=== PATIENT | female | born 1955 | race Caucasian/White ===

== ENCOUNTER 2024-03-22 15:11 | Emergency (ER) | payer OTHER, SELFPAY ==
[2024-03-22 15:32] VITALS: BP 147/71; PULSE 74; RESP 18; TEMP 36.6; O2SAT 97; BMI 26.4
--- NOTE | 2024-03-22 16:22 | ED_ITS ---
HPI - General Adult General Chief complaint: Extremity Pain/Injury, Upper Stated complaint: Left hand abscess, sore and painful Time Seen by Provider: 03/22/24 16:00 Source: patient Mode of arrival: ambulatory Limitations: no limitations History of Present Illness HPI narrative: 68-year-old female coming in today complaining of a skin lesion on her hand has become painful. She noticed that there about a month ago. She has no other concerns today. The lesion is not draining, does appear to be growing over the last month. Remainder of the hand is unremarkable. Related Data Home Medications ?Medication ?Instructions ?Recorded ?Confirmed BP med 03/22/24 acid reflux med 03/22/24 levothyroxine 100 mcg tablet 100 mcg PO DAILY 03/22/24 03/22/24 (Levo-T) Allergies Allergy/AdvReac Type Severity Reaction Status Date / Time No Known Drug Allergies Allergy Verified 03/22/24 15:32 Review of Systems Status of ROS: Reports: 6 or more systems reviewed and unremarkable except as noted in History and below Exam Narrative: Exam Narrative: Well-nourished well-developed patient in no acute distress. Alert and oriented. Answers questions appropriately. Mood and affect are appropriate. Thoughts are goal oriented and rational. No tangential or magical thinking noted. Patient speaks in full sentences without needing to catch her breath. HEENT: Normocephalic atraumatic. Pupils are equally round reactive to light. Extraocular muscles are intact. Conjunctivae are moist without any icterus noted. Moist mucous membranes. Extremities: On the dorsal surface of the left hand patient has a dome-shaped lesion with a central area of depression and scabbing. There is no erythema or warmth to the area the skin is not indurated. There is no infection that is apparent. The lesion appears very reminiscent of a keratoacanthoma. Const: Vital Signs, click to edit/add: Vital Signs - 24 hr 03/22/24 15:32 Temperature 98 F Pulse Rate [Pulse Oximeter] 74 Respiratory Rate 18 Blood Pressure [Ri ght Upper Arm] 147/71 H Pulse Oximetry 97 Oxygen Delivery Me thod Room Air Course Vital Signs Vital signs: Initial Vital Signs Temperature 98 F 03/22/24 15:32 Temperature Source Temporal Artery Scan 03/22/24 15:32 Pulse Rate 74 03/22/24 15:32 Respiratory Rate 18 03/22/24 15:32 Blood Pressure 147/71 H 03/22/24 15:32 Blood Pressure Mean 96 03/22/24 15:32 Blood Pressure Position Sitting 03/22/24 15:32 Pulse Oximetry 97 03/22/24 15:32 Oxygen Delivery Method Room Air 03/22/24 15:32 Vital Signs Temperature 98 F 03/22/24 15:32 Pulse Rate 74 03/22/24 15:32 Respiratory Rate 18 03/22/24 15:32 Blood Pressure 147/71 H 03/22/24 15:32 Pulse Oximetry 97 03/22/24 15:32 Oxygen Delivery Method Room Air 03/22/24 15:32 Temperature 98 F 03/22/24 15:32 Pulse Rate 74 03/22/24 15:32 Respiratory Rate 18 03/22/24 15:32 Blood Pressure 147/71 H 03/22/24 15:32 Pulse Oximetry 97 03/22/24 15:32 Oxygen Delivery Method Room Air 03/22/24 15:32 Medical Decision Making MDM Narrative Medical decision making narrative: 68-year-old female with a keratoacanthoma. Patient instructed to follow up with primary care or felt carbonizer for removal. Differential diagnosis does include squamous cell carcinoma, basal cell carcinoma. Discharge Plan Discharge Clinical Impression: Keratoacanthoma of hand Patient Disposition: Home, Self-Care Condition: Stable Additional Instructions: Follow up with your primary care provider - this lesion will need to be removed. Prescriptions: No Action levothyroxine [Levo-T] 100 mcg tablet 100 mcg PO DAILY acid reflux med BP med Stand Alone Forms: [employer] Info Instructions
--- OUTSIDE RECORDS SUMMARY | 2024-03-22 16:46 | XMS_ITS | Clinical Summary ---
Author Organization [facility] Address [address] [place] [address] Care Team Providers Care Regulatory Associate Name Role Phone Unavailable Primary Care Provider Unavailabl e Source Comments PLEASE NOTE, if this patient is a minor, it may be UNLAWFUL to discuss sensitive information that is contained in these records (such as FAMILY PLANNING, MENTAL HEALTH or SUBSTANCE ABUSE) with the minor patient's parent or other person without the patient's specific authorization.[facility] Allergies Active Allergy Reactions Criticality Noted Date Comments Lisinopril Cough Low 12/23/2017 Medications Medication Sig Dispensed Refills Start Date End Date Status omeprazole (PRILOSEC) [address] capsule Take 1 Capsule by mouth 2 (two) times daily before a meal 03/25/2023 Active simvastatin (ZOCOR) 20 mg tablet Take 1 Tablet by mouth at bedtime 03/25/2023 Active oxyCODONE (ROXICODONE) 5 mg tablet Take 2 Tablets by mouth every 4 hours as needed 05/28/2023 Active losartan (COZAAR) 100 mg tablet Take 0.5 Tablets by mouth daily. TAKE 0.5 TABLETS (50 MG) BY MOUTH ONCE DAILY. 06/11/2023 Active levothyroxine (SYNTHROID, LEVOXYL) 112 mcg tablet Take 1 Tablet by mouth daily. 08/21/2023 Active Active Problems Problem Noted Date Diagnosed Date Facial droop 06/09/2023 TIA (transient ischemic attack) 06/09/2023 Acute left-sided muscle weakness 01/05/2021 Overview: Transient left-sided weakness and slurring of speech, improving after thrombolytic HTN (hypertension) 01/05/2021 Alcohol intoxication 01/05/2021 Hallux rigidus of left foot 05/13/2017 Overview: Added automatically from request for surgery [id number] Insomnia 12/07/2015 Bradycardia 12/07/2015 Dyspnea on exertion 12/07/2015 Abnormal heart sounds 12/07/2015 Metatarsalgia, right foot 12/07/2015 Hammertoe 12/07/2015 Hallux rigidus of both feet 12/07/2015 Bunion 12/07/2015 Capsulitis of right foot 12/07/2015 Gout Hypertension Current smoker Hypothyroid Hyperlipidemia Immunizations Name Administration Dates Next Due Flu, Preservative Free 06/27/2021,2018,07/08/2018,2017 INFLUENZA, SEASONAL, INJECTABLE 09/13/2014,06/30 INFLUENZA, UNSPECIFIED FORMULATION 07/10/2020 Novel [id number], preservative-free, injectable 07/31/2009 PNEUMOCOCCAL CONJUGATE PCV 13 07/10/2020 PNEUMOCOCCAL CONJUGATE PCV 20 03/25/2023 TDAP 03/25/2023,07/14/2012 Td(adult),2 Lf tetanus toxoid,preservative free 01/17/2006 Social History Tobacco Use Types Packs/Day Years Used Date Smoking Tobacco: Never Assessed Social Connections Answer Date Recorded Social Connections and Isolation 0 09/11/2023 Financial Resource Strain Answer Date R ecorded Financial Resource Strain 0 2022 Stress Answer Date Recorded Stress 0 09/11/2023 Physical Activity Answer Date Recorded Physical Activity 0 09/11/2023 Food Insecurity Answer Date Recorded Food 0 09/11/2023 Transportation Needs Answer Date Record ed Transportation 0 09/11/2023 Housing Stability Answer Date Recorded Housing 0 09/11/2023 Safety and Environment Answer Date Jaspreet rded Safety 0 09/11/2023 Utilities Answer Date Recorded Utilities 0 09/11/2023 Employment Answer Date Recorded Employment 0 09/11/2023 Sex and Gender Information Value Date Recorded Sex Assigned at Not on file Gender Identity Not on file Sexual Orientation Not on file Last Filed Vital Signs Vital Sign Reading Time Taken Comments Blood Pressure 132/80 12/25/2018 11:32 AM CDT Pulse 79 12/25/2018 10:50 AM CDT Temperature 36.7 ??C (98 ??F) 12/25/2018 10:50 AM CDT Respiratory Rate 18 06/06/2017 10:02 AM CDT Oxygen Saturation 95% 12/25/2018 10:50 AM CDT Inhaled Oxygen Concentration - - Weight 70.2 kg (154 lb 13 oz) 06/09/2018 3:52 PM CDT Height 152.4 cm (5') 07/08/2018 2:11 PM CDT Body Mass Index 30.23 06/09/2018 3:52 PM CDT Plan of Treatment Health Maintenance Due Date Last Done Comments Hepatitis C Screening 1955 Tobacco Cessation Counseling (#1) 1957 Tobacco Screening 1955 Breast Cancer Screening (Mammogram) 1997 CT Colonography 2002 FIT/gFOBT 2002 Fecal DNA 2002 Flexible Sigmoidoscopy 2002 Imm-Zoster, Recombinant (1 of 2) 2007 Colonoscopy 10/13/2017 10/13/2007 Colorectal Cancer Screening 10/13/2017 Lipid Screening 01/06/2022 01/06/2021, 10/28/2017 Bone Density Screening 2022 Falls Prevention 2022 [id number] ( season) 05/31/202301/28/ 021, 01/07/2021 Alcohol and Drug Screen 09/30/2023 Depression Annual Screen 09/30/2023 12/25/2018 Imm-Influenza (Season Ended) 2024, 07/10/2020, 07/21/2019, Additional history exists TSH Monitoring 06/10/2024 06/10/2023, 05/31, 06/09/2023, Additional history exists Diabetes Screening 06/10/2026 06/10/2023, 0 06/09/2023, 01/06/2021, Additional history exists Imm-DTaP/Tdap/Td (3 - Td or Tdap) 03/25/2033 03/25/2023, 07/14/2012, 01/17/2006 Imm-Pneumococcal 65+ Completed 03/25/2023, 07/10/20 Procedures Procedure Name Priority Date/Time Associated Diagnosis Comments CE UNMAPPED RESULTS Routine 06/10/2023 4 :00 AM PDT BASIC METABOLIC PANEL Routine 06/10/2023 6:00 AM CDT LIPID PANEL WITH REFLEX Routine 01/06/2021 4:58 AM CDT COLONOSCOPY Routine 10/13/2007 12:00 AM FURNITURE PAINTER from Last 3 Months or Most Recently Relevant to Health Maintenance Results * (ABNORMAL) BASIC METABOLIC PANEL (06/10/2023 6:00 AM CDT) UREA NITROGEN (BUN) 22(H) 7 - 17 mg/dL 06/10/2023 6:40 AM CDT DATA CONVERSION SODIUM, SERUM 135(L) 137 - 145 mmol/L 06/10/2023 6:40 AM CDT DATA CONVERSION EGFR 71(L) mL/min/1.7 3m2 06/10/2023 6:40 AM CDT DATA CONVERSION Comment:As of 2021, eG FR is calculated by the CKD-EPI creatinine equation without race adjustment. eGFR can be influenced by muscle mass, exercise, and diet. The reported eGFR is an estimation only and is only applicable if the renal function is stable. Calcium 9.3 8.4 - 10.2 mg/dL 06/10/2023 6:40 AM CDT DATA CONVERSION ANION GAP 5 3 - 11 meq/L 06/10/2023 6:40 AM CDT DATA CONVERSION CO2 (NUNM) 23 22 - 30 mmol/L 06/10/2023 6:40 AM CDT DATA CONVERSION BUN/CREAT RATIO 24 6:40 AM CDT DATA CONVERSION POTASSIUM, SERUM 3.8 3.5 - 5.1 mmol/L 06/10/2023 6:40 AM CDT DATA CONVERSION GLUCOSE 90 75 - 100 mg/dL 06/10/2023 6:40 AM CDT DATA CONVERSION CHLORIDE 107 98 - 107 mmol/L 06/10/2023 6:40 AM CDT DATA CONVERSION CREATININE, SERUM ([facility]) 0.90 0.52 - 1.04 mg/dL 06/10/2023 6:40 AM CDT DATA CONVERSION 06/10/2023 6:00 AM CDT Sa95 Provider Not In System [facility] DATA CONVERSION * (ABNORMAL) LIPID PANEL WITH REFLEX (01/06/2021 4:58 AM CDT) CHOL/HDL 3.36 <=4.50 01/06/2021 5:20 AM CDT DATA CONVERSION LDL CHOLESTEROL CALC 74 <=130 mg/dL 01/06/2021 5:20 AM CDT DATA CONVERSION TRIGLYCRDES 151(H) <150 mg/dL 01/06/2021 5:20 AM CDT DATA CONVERSION CHOLESTEROL 148 <200 mg/dL 01/06/2021 5:20 AM CDT DATA CONVERSION FASTING STATUS RANDOM 01/06/2021 5:20 AM CDT DATA CONVERSION NON HDL CHOLESTEROL 104 <145 mg/dl 01/06/2021 5:20 AM CDT DATA CONVERSION HDL CHOLESTEROL 44 40 - 60 mg/dL 01/06/2021 5:20 AM CDT DATA CONVERSION 01/06/2021 4:58 AM CDT Sa[facility] Provider Not In System LAB - BLOOD DRAW DATA CONVERSION * COLONOSCOPY (10/13/2007 12:00 AM FURNITURE PAINTER) 10/13/2007 Sa95 Provider Not In System PROCEDURES DATA CONVERSION [address] [place] [address], [place] from Last 3 Months or Most Recently Relevant to Health Maintenance
--- OUTSIDE RECORDS SUMMARY | 2024-03-22 16:46 | XMS_ITS | Clinical Summary ---
Author Organization [facility] Address [place], [place] [address] Care Team Providers Care Signals Intelligence Superintendent Name Role Phone Edis Henrandez MD Primary Care Provider [phone] Allergies Active Allergy Reactions Criticality Noted Date Comments Lisinopril Cough Low 12/23/2017 Medications Medication Sig Dispensed Refills Start Date End Date Status omeprazole (PRILOSEC) 20 mg Delayed-Release capsuleIndications: Gastroesophageal reflux disease, unspecified whether esophagitis present Take 1 Capsule (20 mg) by mouth two times daily before meals. 180 Capsule 3 03/25/2023 Active simvastatin (ZOCOR) 20 mg tabletIndications:H yperlipidemia, unspecified hyperlipidemia type Take 1 Tablet (20 mg) by mouth at bedtime. 90 Tablet 3 03/25/2023 Active oxyCODONE (ROXICODONE) 5 mg immediate release tabletIndications:C MC arthritis Take 1-2 Tablets (5-10 mg) by mouth every 4 hours if needed for Pain. 30 Tablet 05/28/2023 Active acetaminophen SR (TYLENOL ARTHRITIS) 650 mg Extended-Release tabletIndications:p ain Take 650 mg by mouth 2 times daily if needed. Max acetaminophen dose: 4000mg in 24 hrs. Active losartan (COZAAR) 100 mg tabletIndications:E ssential hypertension Take 0.5 Tablets (50 mg) by mouth once daily. 90 Tablet 3 06/11/2023 Active levothyroxine (SYNTHROID) 112 mcg tabletIndications:A cquired hypothyroidism Take 1 Tablet (112 mcg) by mouth once daily. 90 Tablet 3 12/13/2023 Active Active Problems Problem Noted Date Diagnosed Date Facial droop 06/09/2023 TIA (transient ischemic attack) 06/09/2023 Acute left-sided muscle weakness 01/05/2021 Overview: Transient left-sided weakness and slurring of speech, improving after thrombolytic HTN (hypertension) 01/05/2021 Alcohol intoxication 01/05/2021 Hallux rigidus of left foot 05/13/2017 Overview: Added automatically from request for surgery [id number] Insomnia 12/07/2015 Bradycardia 12/07/2015 Dyspnea on exertion 12/07/2015 Abnormal heart sounds 12/07/2015 Metatarsalgia, right foot 12/07/2015 Hammertoe 12/07/2015 Hallux rigidus of both feet 12/07/2015 Bunion 12/07/2015 Capsulitis of right foot 12/07/2015 Gout Hypertension Current smoker Hypothyroid Hyperlipidemia Immunizations Name Administration Dates Next Due COVID-19 vaccine (Localmint 30mcg/0.3mL) PF, MDV 01/28/2021,01/07/2021 Influenza A (H1N1), Inactiva joseluis (Age >=3 Years) 07/31/2009 Influenza Virus, Unspecified 07/10/2020 Influenza, IIV3 (Age >=3 years) 09/13/2014,06/30 Influenza, IIV4 06/27/2021,,07/08/2018,2017 Pneumococcal Conj 20-valent (Prevnar 20) 03/25/2023 Pneumococcal conj 13-Valent (Prevnar 13) 07/10/2020 Td (Age >=7 Years) 01/17/2006 Tdap 03/25/2023,07/14/2012 Family History Medical History Relation Name Comments Good Health Brother one Good Health Daughter 1 Alie Good Health Daughter 2 Mariella Endometriosis Daughter 3 Tania Other Father alive - macular degener. Other Mother choking episode -dec Diabetes Paternal Grandmother Stroke Paternal Grandmother Good Health Sister 1 four Asthma Sister 3 Cancer-breast No Family History Cancer-colon No Family History Cancer-ovarian No Family History Cancer-prostate No Family History Coronary artery disease No Family History Relation Name Status Comments Brother Alive Daughter 1 Alie Alive Daughter 2 Mariella Alive Daughter 3 Tania Alive Father Alive Maternal Grandfather Maternal Grandmother Mother (Age 85) Paternal Grandfather Paternal Grandmother Sister 1 Alive Sister 2 Alive Sister 3 Alive Sister 4 Alive Social History Tobacco Use Types Packs/Day Years Used Date Smoking Tobacco: Every Day Cigarettes 1 30 Started: 07/24/1989; Last attempted to quit: 07/24/2019 Smokeless Tobacco: Never Tobacco Cessation:Ready to Q uit: No; Counseling Given: No Alcohol Use Standard Drinks/Week Comments Yes 2 (1 standard drink = 0.6 oz pur e alcohol) 4 times a week PHQ-2 Answer Date Recorded PHQ-2 TOTAL SCORE 0 05/21/2023 Social Connections Answer Date Recorded Frequency of Communication with Friends and Fami ly Not on file 09/30/2021 Financial Resource Strain Answer Date R ecorded Difficulty of Paying Living Expenses Not on file 09/30/2021 Difficulty of Paying Living Expenses Not on file 09/30/2021 Sex and Gender Information Value Date Recorded Sex Assigned at Not on file Gender Identity Not on file Sexual Orientation Not on file Obstetrics History Para Term AB IAB SAB Ectopic Multiple Livin g Live Births 5 3 Date Outcome GA Total Labor Labor/2nd/3rd Weight Sex Type Anes PTL Diane A1 A5 Name Clin Para Para Para Last Filed Vital Signs Vital Sign Reading Time Taken Comments Blood Pressure 157/86 08/14/2023 10:44 AM FREELANCE GRAPHIC DESIGNER Pulse 68 08/14/2023 10:44 AM FREELANCE GRAPHIC DESIGNER Temperature 36.2 ??C (97.2 ??F) 06/10/2023 8 :13 AM CDT Respiratory Rate 18 06/10/2023 8:13 AM CDT Oxygen Saturation 98% 08/14/2023 10: 44 AM FREELANCE GRAPHIC DESIGNER Inhaled Oxygen Concentration - - Weight 70.3 kg (154 lb 14.4 oz) 06/10/2023 8:13 AM CDT need to rezero bed Height 152.4 cm (5') 06/10/2023 12:00 AM CDT Body Mass Index 30.25 06/10/2023 12:00 AM CDT Plan of Treatment Health Maintenance Due Date Last Done Comments Hepatitis C screening for ag e 18-[address] (for lung CA) ag e 50-80 2007 Zoster (shingles) series for age 50+ (1 of 2) 2007 Mammogram for age 45-75 05/17/2015 05/17/2014, 05/17 Colonoscopy through age 75 12/06/201812/06 (Completed outside of [facility]), 10/13/2007 DEXA/DXA scan for age 65+ 2022 Medicare Wellness for age 65+ 2022 12/25/2018 COVID-19 vaccine series ( season) 2023 01/28/2021, 01/07/2021 BMI (ht and wt on same day) for age 18+ 05/21/2024 05/21/2023, 04/24/2023, 03/25/2023, Additional history exists Depression screening for age 12+ 05/21/2024 05/21/2023, 05/21/2023, 03/25/2023, Additional history exists Influenza for age 65+ 05/31/2024 06/27/2021 , 07/10/2020, 07/21/2019, Additional history exists Lipids for age 45-75 02/08/2028 02/07/2023, 12/19/2021, 01/06/2021, Additional history exists Tetanus booster 03/25/2033 03/25/2023, 06/30, 01/17/2006 Pneumococcal series for age 65+ Completed , 07/10/2020 Tdap Completed 03/25/2023, 07/14/2012 Procedures Procedure Name Priority Date/Time Associated Diagnosis Comments LIPID PANEL Today 02/07/2023 10:01 AM CDT Hyperlipidemia, unspecified hyperlipidemia type MAMMOGRAPHY Routine 05/17/2014 Special screening examination for neoplasm of breast COLONOSCOPY Routine 10/13/2007 Special screening for malignant neoplasm of colon from Last 3 Months or Most Recently Relevant to Health Maintenance Results * (ABNORMAL) LIPID PANEL (02/07/2023 10:01 AM CDT) CHOLESTEROL,TOTAL 237(H) <200 mg/dL 02/07/2023 10:49 AM CDT [facility] TRIGLYCERIDES 192(H) 10 - 150 mg/dL 02/07/2023 10:49 AM CDT [facility] HDL CHOLESTEROL 47 >40 mg/dL 10:49 AM CDT [facility] CHOL/HDL RATIO 5.04(H) 0.00 - 5.00 02/07/2023 10:49 AM CDT [facility] VLDL CHOLESTEROL CUY 38(H) 0 - 30 mg/dL 02/07/2023 10:49 AM CDT [facility] PATIENT STATUS FASTING 02/07/2023 10:49 AM CDT [facility] LDL CHOLESTEROL CUY 128(H) <100 mg/dL 02/07/2023 10:49 AM T [facility] Blood BLOOD SPECIMEN / Unknown Venipuncture / Unknown 02/07/2023 10:01 AM CDT 02/07/2023 10:02 AM CDT Edis Hernandez MD CHEMISTRY [facility] [address] [place] [address], * MAMMOGRAPHY [] (05/17/2014) MAMMOGRAM completed Anatomical Region Laterality Modality Other Other Doctor Unknown [facility] RESULTS * COLONOSCOPY [] (10/13/2007) COLONOSCOPY completed Other Doctor Unknown [facility]INT RESULTS from Last 3 Months or Most Recently Relevant to Health Maintenance Advance Directives * Full Code (Latest Code Status on File) Date Activated Date Inactivated Comments 06/10/2023 12:01 AM 06/10/2023 12:37 PM Question Answer Comments Code Status Discussion: Reviewed Preferences * Full Code Date Activated Date Inactivated Comments 05/28/2023 2:17 PM 05/29/2023 2:34 AM Question Answer Comments Code Status Discussion: Reviewed Preferences * Full Code Date Activated Date Inactivated Comments 01/05/2021 3:55 AM 01/06/2021 3:44 PM Per spouse Question Answer Comments Code Status Discussion: Discussed * Full Code Date Activated Date Inactivated Comments 05/17/2017 7:38 AM 05/17/2017 11:30 AM * Full Code Date Activated Date Inactivated Comments 05/17/2017 6:20 AM 05/17/2017 7:38 AM Care Teams Signals Intelligence Superintendent Relationship Specialty Start Date End Date Edis Hernandez MD [address] [place] [id number] PCP - General Family Practice 09/02/19
--- OUTSIDE RECORDS SUMMARY | 2024-03-22 16:46 | XMS_ITS | Encounter Summary ---
Author Organization [facility] Address [address] [place] [address] Care Team Providers Care Caustics Loader Name Role Phone Unavailable Primary Care Provider Unavailabl e Encounter Details Date Type Department Care Team (Late st Contact Info) Description 05/20/2017 Scan Pathology [facility] MICHAEL [address] [facility] [place] [id number] System, [id number] Provider Not In Social History Tobacco Use Types Packs/Day Years Used Date Smoking Tobacco: Never Assessed Sex and Gender Information Value Date Recorded Sex Assigned at Not on file Gender Identity Not on file Sexual Orientation Not on file documented as of this encounter Plan of Treatment Not on file documented as of this encounter Procedures Procedure Name Priority Date/Time Associated Diagnosis Comments PATHOLOGY SCANNED DOCUMENT 05/20/2017 2:00 AM CDT documented in this encounter Results * PATHOLOGY SCANNED DOCUMENT (05/20/2017 2:00 AM CDT) 05/20/2017 2:00 AM CDT Sa[facility] Provider Not In System SCAN LAB documented in this encounter Visit Diagnoses Not on filedocumented in this encounter
== END 2024-03-22 16:49 | disposition home or self-care (01) ==
LOC: ED 16:44
PROVIDERS: Emergency Provider Family Medicine
DX: L85.8 Other specified epidermal thickening (principal)
CPT/HCPCS: 99283